=== PATIENT | male | born 1950 | race Caucasian/White ===

== ENCOUNTER 2018-02-12 11:08 | Outpatient (CLI) | payer MEDICARE, OTHER | END 2018-02-12 11:09 | disposition critical access hospital (66) | LOC: EMS 11:08 | PROVIDERS: ATTEND Surgery | DX: S01.81XA Laceration without foreign body of other part of head, initial encounter (principal); W11.XXXA Fall on and from ladder, initial encounter; W22.8XXA Striking against or struck by other objects, initial encounter; Y92.008 Other place in unspecified non-institutional (private) residence as the place of occurrence of the external cause | CPT/HCPCS: A0425; A0429 ==

== ENCOUNTER 2018-02-12 11:28 | Emergency (ER) | payer MEDICARE, OTHER ==
[2018-02-12] MEDS ORDERED: BUPIVACAINE 0.5%-EPI 1:200000 PF 10 ML VIAL SUBQ STA (11:38)
[2018-02-12] MEDS ORDERED: TETANUS/DIPHTHERIA/PERTUSSIS 0.5 ML SYRINGE IM ONE (11:39)
--- NOTE | 2018-02-12 11:42 | ED Physician Documentation ---
History of Present Illness - Stated complaint Stated Complaint: FALL FROM LADDER - Chief complaint Chief Complaint: Trauma Hd/Nk - Additonal information Additional information: hx from pt 67 male on a ladder approx 8 feet up ladder slipper her fell forward striking R supraorbital region on top of ladder then fell large lac a facial bruising no vision loss denies LOC - states he was awake when she got to his side - but he has amnesia to the event so cannot be certain denies GARCIA and neck pain no NV some R lower rib pain no sig abd pain abrasion R galo no other ext injury no blood thinners Review of Systems Constitutional: denies: Fever Ears: denies: Drainage/discharge Nose: denies: Epistaxis Cardiac: reports: Chest pain / pressure (R ribs) Respiratory: denies: Dyspnea GI: denies: Abdominal Pain Skin: reports: Laceration (s) Neurologic: reports: Head injury. denies: Generalized weakness, Focal weakness, Syncope, Seizure, Confused, Altered mental status, Headache Endocrine: denies: Easy bruising / bleeding Immunocompromised: denies: Immunocompromised PD PAST MEDICAL HISTORY - Past Medical History Cardiovascular: High cholesterol Respiratory: Other Endocrine/Autoimmune: None GI: GERD : None HEENT: None Psych: None Musculoskeletal: None - Past Surgical History General: Colonoscopy, EGD - Present Medications Home Medications: Ambulatory Orders Medication Instructions Recorded Confirmed Esomeprazole Magnesium [Nexium] 20 mg PO DAILY 10/16/15 10/16/15 Fexofenadine HCl [Renetta Allergy] 180 mg PO ONCE 10/16/15 10/16/15 Simvastatin [Zocor] 40 mg PO DAILY 10/16/15 10/16/15 - Allergies Allergies/Adverse Reactions: Allergies Allergy/AdvReac Type Severity Reaction Status Date / Time No Known Drug Allergies Allergy Verified 02/12/18 11:39 PD ED PE NORMAL - Vitals Vital signs reviewed: Yes - General General: Alert and oriented X 3 - HEENT HEENT: PERRL, EOMI, Other (no proptosis) - Neck Neck: No bony TTP (but collared and imaged due to mechansim) - Cardiac Cardiac: RRR - Respiratory Respiratory: No respiratory distress, Clear bilaterally, Other (TTP R lower ant/lat ribs with questionable crepitus) - Abdomen Abdomen: Soft, Non tender, Other (no bruising or distension) - Derm Derm: Other (R periorbital ecchymosis, PERRL, no proptosis, very deep approx 8 cm long jagged lacereation just above eyebrow) - Extremities Extremities: No deformity, No tenderness to palpate, Other (abrasion R galo) - Neuro Neuro: Alert and oriented X 3, 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, No motor deficit, No sensory deficit, Normal speech Results - Vitals Vitals: Vital Signs - 24 hr 02/12/18 02/12/18 02/12/18 11:32 12:27 14:00 Temperature 36.7 C Heart Rate 55 L 62 77 Respiratory 18 18 18 Rate Blood Pressure 141/89 H 138/92 H 145/82 H O2 Saturation 97 97 97 02/12/18 15:00 Temperature Heart Rate 84 Respiratory 18 Rate Blood Pressure 147/83 H O2 Saturation 97 Oxygen O2 Source Room air - Labs Labs: Laboratory Tests 02/12/18 02/12/18 13:46 15:29 WBC 16.3 H RBC 4.68 L Hgb 15.8 Hct 45.7 MCV 97.7 H MCH 33.9 H MCHC 34.6 RDW 13.5 Plt Count 264 MPV 9.6 Neut # (Auto) 14.0 H Lymph # (Auto) 1.2 L [place] # (Auto) 1.1 H Eos # (Auto) 0.0 Baso # (Auto) 0.1 Absolute Nucleated RBC 0.01 Nucleated RBC % 0.1 Sodium 139 Potassium 4.4 Chloride 108 Carbon Dioxide 21 Anion Gap 10.0 BUN 23 H Creatinine 1.1 Estimated GFR (MDRD) 67 L Glucose 96 Calcium 8.9 - Rads (name of study) CTH Radiology: See rad report (no acute) CT facial Radiology: See rad report (no facial fx, R periorbital STS, no retro-orbital hematoma) CXR Radiology: See rad report CT CS Radiology: See rad report (possible C2 posterior arch fracture, degen changes) Procedures - Laceration (location) face Length in cm: 8 Wound type: Linear, Irregular. No: Contaminated Neurovascular status: Sensory intact, Motor intact Anesthesia: Marcaine 0.5% with epi (8 cc) Wound Preparation: Irrigated copiously NS (by tech/RN) Deep layer closure: Vicryl (3), size #-0 - enter number (5), # sutures - enter number (3) Skin layer closure: Nylon (12), Interrupted, Size #-0 - enter number (5), Sutures - enter # Other: Patient tolerated well, Dressing applied, Tetanus booster given. No: Neurovascular intact (still blocked) Complexity: Simple PD MEDICAL DECISION MAKING - ED course ED course: upon arrival pt placed in collar given mechanism CT shows a C2 posterior arch fx pt initially neuro intact over course of ED stay developed weakness to R shoulder - diff to ABD or lift arm - bicep tricep biometrics head finger ABD OK thumbs up and wrist ext still intact, sensory intact as well - will [place] [facility] = no tenderness swelling or bruising or any evidence of injury [place] [facility] and bed confirmation at [facility] could not transport so called [facility] for transport pt placed on spine board for transport - in addition to his collar in ambulance pt became anxious claustrophobic and nauseated, pulled off his collar and spider straps, [facility] advised not in their protocol to medicate pt for nausea and anxiety so I went out to the ambulance and assessed the pt - he was very stressed and claustrophobic, felt like he couldn''t breath and was going to vomit while strapped down, states he wanted to get out and walk around and he doesn't care if he is paralyzed forever, given that he has a head injury and has received morphine multiple doses I do not think has capacity to make that decision in the midst of a panic attack, I removed the strap over his neck and he started to calm down a bit, checked blood sugar and it was 105, gave ativan 2 mg IV and zofran, pt calming down and feeling better, I reapplied collar and adjusted it to comfort, he agreed to remain laying flat as long as not strapped, I told EMS I was going back in the ER but would be back to recheck him in a short while, then a few minutes later they drove away with the pt - Sepsis Event Vital Signs: Vital Signs - 24 hr 02/12/18 02/12/18 02/12/18 11:32 12:27 14:00 Temperature 36.7 C Heart Rate 55 L 62 77 Respiratory 18 18 18 Rate Blood Pressure 141/89 H 138/92 H 145/82 H O2 Saturation 97 97 97 02/12/18 15:00 Temperature Heart Rate 84 Respiratory 18 Rate Blood Pressure 147/83 H O2 Saturation 97 Oxygen O2 Source Room air Departure - Departure Disposition: 02 Transfer Acute Care Hosp Clinical Impression: C2 cervical fracture Qualifiers: Encounter type: initial encounter Fracture type: closed Fracture morphology: other fracture Fracture alignment: nondisplaced Qualified Code(s): S12.191A - Other nondisplaced fracture of second cervical vertebra, initial encounter for closed fracture Facial laceration Qualifiers: Encounter type: initial encounter Qualified Code(s): S01.81XA - Laceration without foreign body of other part of head, initial encounter Head injury Qualifiers: Encounter type: initial encounter Qualified Code(s): S09.90XA - Unspecified injury of head, initial encounter Contusion of rib on right side Qualifiers: Encounter type: initial encounter Qualified Code(s): S20.211A - Contusion of right front wall of thorax, initial encounter Fall Qualifiers: Encounter type: initial encounter Qualified Code(s): W19.XXXA - Unspecified fall, initial encounter Condition: Fair Discharge Date/Time: 02/12/18 16:26
--- NOTE | 2018-02-12 12:36 | CT Report ---
Reason: fall off ladder Procedure Date: 02/12/2018 Accession Number: [id number] / [id number] Procedure: CT - Head W/O CPT Code: FULL RESULT: EXAM: CT HEAD EXAM DATE: 02/12/2018 12:00 PM. CLINICAL HISTORY: Fall off ladder. COMPARISON: CERVICAL SPINE W/O 02/12/2018 12:00 AM. TECHNIQUE: Multiaxial CT images were obtained from the foramen magnum to the vertex. Reformats: Coronal. IV contrast: None. In accordance with CT protocol optimization, one or more of the following dose reduction techniques were utilized for this exam: automated exposure control, adjustment of mA and/or KV based on patient size, or use of iterative reconstructive technique. FINDINGS: Parenchyma: No intraparenchymal hemorrhage. No evidence of mass, midline shift, or CT findings of infarction. Snow-white differentiation is distinct. Extraaxial Spaces: Normal for age. No subdural or epidural collections identified. Ventricles: Normal in size and position. Sinuses and Orbits: Imaged paranasal sinuses, orbits, and mastoids show no significant abnormality. Bones: No evidence of fracture or calvarial defect. Other: None. IMPRESSION: Normal head CT. No intracranial hemorrhage or other acute abnormality. [facility]
[2018-02-12] MEDS ORDERED: MORPHINE 2 MG/ML CARPUJECT IVP STA ×2 (12:43→13:57)
[2018-02-12] MEDS ORDERED: ONDANSETRON 4 MG/2 ML VIAL IVP STA (12:43)
[2018-02-12] MEDS ORDERED: SODIUM CHLORIDE 0.9% 1,000 ML IV ONE ×2 (12:43→12:45)
--- NOTE | 2018-02-12 12:43 | CT Report ---
Reason: fall off ladder Procedure Date: 02/12/2018 Accession Number: [id number] / [id number] Procedure: CT - Cervical Spine W/O CPT Code: FULL RESULT: EXAM: CT CERVICAL SPINE WITHOUT CONTRAST DATE: 02/12/2018 12:00 PM. HISTORY: Fall off ladder. COMPARISONS: Noncontrast CT head 02/12/2018. TECHNIQUE: Thin-section axial images were acquired of the cervical spine without contrast. Post-processing: Coronal and sagittal reformats. Other: None. In accordance with CT protocol optimization, one or more of the following dose reduction techniques were utilized for this exam: automated exposure control, adjustment of mA and/or KV based on patient size, or use of iterative reconstructive technique. FINDINGS: Alignment: There is straightening of normal cervical lordosis. There is anterolisthesis of C4 on C5 measuring 2 mm, likely related to degenerative changes. No scoliosis. Bones: No fracture or bone lesion. Interspace Levels/Facets: C1-C2: Mild degenerative change at the atlantodental joint. C2-C3: Mild disk height loss and endplate osteophyte formation. C3-C4: Moderate disk height loss and endplate osteophyte formation. There is moderate to severe bilateral bony neural foraminal narrowing. C4-C5: Mild disk height loss and endplate osteophyte formation. There is mild right neural foraminal narrowing. C5-C6: Moderate to severe disk height loss and endplate osteophyte formation. There is mild central canal narrowing. There is mild bilateral bony neural foraminal narrowing. C6-C7: Moderate disk height loss and endplate osteophyte formation. There is mild right and moderate left neural foraminal narrowing. C7-T1: Mild disk height loss. Musculature: Normal. No fatty atrophy. Other: The paravertebral and prevertebral soft tissues are unremarkable. The lung apices are clear. IMPRESSION: 1. No acute osseous abnormality of the cervical spine. 2. Multilevel degenerative changes of the cervical spine, most advanced at the C5-C6 and C6-C7 levels. 3. There is mild central canal narrowing at the C5-C6 level. There is multilevel bilateral neuroforaminal narrowing as described above. 4. Minimal anterolisthesis of C4 on C5, likely related to degenerative changes. [facility] ADDENDUM: 02/12/18 13:24 Additional FINDINGS: There is a subtle serpiginous linear lucency in the right posterior arch of the C2 vertebra (series 8 images 43-44, series 13 image is 27-31, and series 14 image 47). This could represent a subtle nondisplaced fracture of the right posterior arch of C2. A nutrient foramen could have a similar appearance. These findings were reviewed with Dr. Gomez by Dr. Kam Guerrero at 1:25 PM on 02/12/2018.
--- NOTE | 2018-02-12 12:51 | CT Report ---
Reason: fall off ladder R periorbital injury Procedure Date: 02/12/2018 Accession Number: [id number] / [id number] Procedure: CT - Facial Bones W/O CPT Code: FULL RESULT: EXAM: CT MAXILLOFACIAL WITHOUT CONTRAST EXAM DATE: 02/12/2018 12:00 PM. CLINICAL HISTORY: Fall off ladder. R periorbital injury. COMPARISONS: HEAD W/O 02/12/2018 12:00 AM. TECHNIQUE: Thin-section axial images were acquired of the face without contrast. Post-processing: Coronal and sagittal reformats. Other: None. In accordance with CT protocol optimization, one or more of the following dose reduction techniques were utilized for this exam: automated exposure control, adjustment of mA and/or KV based on patient size, or use of iterative reconstructive technique. FINDINGS: Soft Tissue: There is superficial soft tissue swelling in the right periorbital region. There is a soft tissue laceration superior to the right orbit. There is mild stranding and edema of the right orbital fat. No retro-septal fluid collection identified. The bilateral globes appear symmetric and intact. The infratemporal fossa and parapharyngeal spaces are unremarkable. Orbits: Symmetric and unremarkable. Bones: No fracture or bone lesion. Temporomandibular Joints: The temporomandibular joints are symmetric and normally located. Sinuses: There is mild mucosal thickening of the bilateral ethmoid air cells. Otherwise, the paranasal sinuses are clear. No fluid levels. Other: None. IMPRESSION: 1. No maxillofacial fracture visualized. 2. Right periorbital superficial soft tissue swelling. There is mild edema of right orbital fat. No retroseptal fluid collection identified. [facility]
--- NOTE | 2018-02-12 12:53 | XRAY Report ---
Reason: fall off ladder Procedure Date: 02/12/2018 Accession Number: [id number] / [id number] Procedure: XR - Ribs w/PA Chest RT CPT Code: FULL RESULT: EXAM: RIGHT RIB RADIOGRAPHY EXAM DATE: 02/12/2018 12:10 PM. CLINICAL HISTORY: Fall off ladder. COMPARISON: None. TECHNIQUE: 1 view of the chest and 3 views of the ribs. FINDINGS: Bones: Normal. No fracture or bone lesion. Lungs: Linear basilar opacities likely reflect atelectasis. No other consolidation. No pneumothorax. Mediastinum: Heart and mediastinal contours are unremarkable. Other: None. IMPRESSION: Normal chest and rib radiography. No displaced rib fracture is evident. [facility]
[2018-02-12] MEDS ORDERED: LIDOCAINE PATCH 5% TOP PRN (13:57)
[2018-02-12 13:59] LABS: CALCIUM 8.9 mg/dL (8.5-10.3); CREATININE 1.1 mg/dL (0.6-1.2)
[2018-02-12 15:39] VITALS: BP 147/83
[2018-02-12 15:46] LABS: BASOPHILS # (AUTO) 0.1 10^3/uL (0.0-0.1); BASOPHILS % (AUTO) 0.3 %; EOSINOPHILS % (AUTO) 0.1 %; HGB - HEMOGLOBIN 15.8 g/dL (14.0-18.0); LYMPHOCYTES # (AUTO) 1.2 10^3/uL (1.5-3.5); LYMPHOCYTES % (AUTO) 7.1 %; MEAN CORPUSCULAR HEMOGLOBIN 33.9 pg (27.0-31.0); MEAN CORPUSCULAR HGB CONC 34.6 g/dL (32.0-36.0); MEAN CORPUSCULAR VOLUME 97.7 fL (80.0-94.0); MEAN PLATELET VOLUME 9.6 fL (7.4-11.4); MONOCYTES # (AUTO) 1.1 10^3/uL (0.0-1.0); MONOCYTES % (AUTO) 6.6 %; NEUTROPHILS % (AUTO) 85.9 %; PLT - PLATELET COUNT 264 10^3/uL (130-450); RED BLOOD COUNT 4.68 10^6/uL (4.70-6.10); RED CELL DISTRIBUTION WIDTH 13.5 % (12.0-15.0); WHITE BLOOD COUNT 16.3 x10^3/uL (4.8-10.8)
[2018-02-12] MEDS ORDERED: LORazepam 2 MG/ML VIAL IVP STA ×2 (16:35→16:36)
[2018-02-12] MEDS ORDERED: LORazepam 2 MG/ML VIAL ONE (16:36)
[2018-02-12] MEDS ORDERED: ONDANSETRON 4 MG/2 ML VIAL ONE (16:38)
== END 2018-02-12 16:26 | disposition short-term general hospital (02) ==
LOC: EDUNIT# → ED 11:28
DX: S12.191A Other nondisplaced fracture of second cervical vertebra, initial encounter for closed fracture (principal); S01.81XA Laceration without foreign body of other part of head, initial encounter; S09.90XA Unspecified injury of head, initial encounter; S20.211A Contusion of right front wall of thorax, initial encounter; W11.XXXA Fall on and from ladder, initial encounter; E78.00 Pure hypercholesterolemia, unspecified; Z23 Encounter for immunization
CPT/HCPCS: 12015; 70450; 70486; 71101; 72125; 80048; 85025; 90471; 90715; 96361; 96374; 96376; 99284; A9270; J2060; 86850; 86900; 86901; 99285

== ENCOUNTER 2018-03-15 09:25 | Outpatient (CLI) | payer MEDICARE, OTHER ==
[2018-03-15 14:24] LABS: BASOPHILS # (AUTO) 0.1 10^3/uL (0.0-0.1); BASOPHILS % (AUTO) 1.1 %; EOSINOPHILS # (AUTO) 1.8 10^3/uL (0.0-0.7); EOSINOPHILS % (AUTO) 19.1 %; LYMPHOCYTES # (AUTO) 2.5 10^3/uL (1.5-3.5); LYMPHOCYTES % (AUTO) 26.4 %; MEAN CORPUSCULAR HEMOGLOBIN 34.4 pg (27.0-31.0); MEAN CORPUSCULAR HGB CONC 35.3 g/dL (32.0-36.0); MEAN CORPUSCULAR VOLUME 97.6 fL (80.0-94.0); MEAN PLATELET VOLUME 10.1 fL (7.4-11.4); MONOCYTES % (AUTO) 10.5 %; NEUTROPHILS % (AUTO) 42.9 %; PLT - PLATELET COUNT 220 10^3/uL (130-450); RED BLOOD COUNT 4.66 10^6/uL (4.70-6.10); RED CELL DISTRIBUTION WIDTH 12.9 % (12.0-15.0); WHITE BLOOD COUNT 9.3 x10^3/uL (4.8-10.8)
[2018-03-15 14:31] LABS: ALBUMIN 4.2 g/dL (3.2-5.5); ALBUMIN/GLOBULIN RATIO 1.3 (1.0-2.2); ALKALINE PHOSPHATASE 61 IU/L (42-121); ALT ALANINE AMINOTRANSFERASE 32 IU/L (10-60); AST ASPARTATE AMINOTRANSFERASE 26 IU/L (10-42); BUN - BLOOD UREA NITROGEN 21 mg/dL (6-20); CHOL/HDL RATIO 3.4 (<5.0); CHOLESTEROL 132 mg/dL; CREATININE 1.1 mg/dL (0.6-1.2); GFR - MDRD 67 (>89); HDL CHOLESTEROL 39 mg/dL; LDL CHOLESTEROL,CALCULATED 74 mg/dL; LDL/HDL RATIO 1.9 (<3.6); TOTAL PROTEIN 7.4 g/dL (6.7-8.2); VLDL CHOLESTEROL 19 mg/dL
[2018-03-15 15:00] LABS: CALCIUM 9.1 mg/dL (8.5-10.3); CARBON DIOXIDE - CO2 22 mmol/L (21-32); CHLORIDE 108 mmol/L (101-111); GLUCOSE 92 mg/dL (70-100); SODIUM 136 mmol/L (135-145)
[2018-03-15 15:17] LABS: PLATELET ESTIMATE, MANUAL NORMAL (130-450,000) (NORMAL)
== END 2018-03-15 09:26 | disposition home or self-care (01) ==
LOC: LAB.WCP 09:25
PROVIDERS: ATTEND Physician Assistant Medical
DX: E78.5 Hyperlipidemia, unspecified (principal); Z12.5 Encounter for screening for malignant neoplasm of prostate; R42 Dizziness and giddiness; K21.9 Gastro-esophageal reflux disease without esophagitis
CPT/HCPCS: 36415; 80053; 80061; 84443; 85025; G0103; 83721; 84153

== ENCOUNTER 2018-04-15 07:53 | Outpatient (CLI) | payer MEDICARE, OTHER ==
--- NOTE | 2018-04-16 21:59 | MRI Report ---
Reason: SHOULDER PAIN,RIGHT Procedure Date: 04/15/2018 Accession Number: [id number] / [id number] Procedure: MRI - Shoulder RT W/O CPT Code: FULL RESULT: EXAM: RIGHT SHOULDER MRI WITHOUT CONTRAST. EXAM DATE: 04/15/2018 08:08 AM. CLINICAL HISTORY: Shoulder pain, right. COMPARISON: Shoulder 3 view right 04/11/2018 8:49 AM. TECHNIQUE: Multiplanar, multisequence T1-weighted and fluid-sensitive sequences of the shoulder without contrast. Other: None. FINDINGS: Acromioclavicular Region: The acromion is type II. Mild degenerative joint disease. The coracoacromial and coracoclavicular ligaments are intact. Trace subacromial and subdeltoid bursal fluid. Glenohumeral Region: No subluxation. Small to moderate joint effusion. Moderate cartilage thinning. The glenohumeral ligaments and joint capsule are unremarkable. Bone Marrow: Degenerative subcortical cyst formation lateral humeral head. Labrum: The labrum is unremarkable on this nonarthrographic study. Musculature/Rotator Cuff: 0.7 cm full-thickness tear of the anterior distal supraspinatus attachment with 0.7 cm retraction. No fatty atrophy. Mild tendinosis with mild T2 hyperintensity of the distal infraspinatus. Subscapularis and teres minor appear normal. Biceps Tendon: The long head of the biceps tendon and biceps jamila are intact. Other: The subcutaneous tissues are unremarkable. IMPRESSION: 1. Small full-thickness tear of the anterior distal supraspinatus with minimal retraction but no atrophy. 2. Mild distal infraspinatus tendinosis. [facility] MUSCULOSKELETAL RADIOLOGY SECTION
== END 2018-04-15 07:54 | disposition home or self-care (01) ==
LOC: DI 07:53
PROVIDERS: ATTEND Orthopaedic Surgery Sports Medicine
DX: M75.101 Unspecified rotator cuff tear or rupture of right shoulder, not specified as traumatic (principal); M67.911 Unspecified disorder of synovium and tendon, right shoulder

== ENCOUNTER 2018-05-17 09:05 | Day surgery (SDC) | payer MEDICARE, OTHER ==
[2018-05-17] MEDS ORDERED: LACTATED RINGERS 1,000 ML IV ONE ×2 (09:19→13:30)
[2018-05-17] MEDS ORDERED: ceFAZolin 2 GM/50 ML 2 GM/50 ML BAG IV ONE ×2 (09:22→12:00)
--- NOTE | 2018-05-17 10:01 | ANESTHESIA ---
Pre-Anesthesia VS, & Labs - Diagnosis right shoulder rotator cuff tear - Procedure right arthroscopic rotator cuff repair Vital Signs: Temp Pulse Resp BP Pulse Ox 36.7 C 63 16 123/78 95 05/17/18 09:21 05/17/18 09:21 05/17/18 09:21 05/17/18 09:21 05/17/18 09:21 Height 5 ft 10 in Weight (kg) 114 kg Body Mass Index 34.2 - NPO >8 hours Home Medications and Allergies Home Medications: Ambulatory Orders Aspirin 81 mg PO DAILY 05/16/18 Cetirizine [ZyrTEC] 10 mg PO DAILY 05/17/18 Esomeprazole Magnesium [Nexium] 20 mg PO DAILY 10/16/15 Simvastatin [Zocor] 40 mg PO DAILY 10/16/15 Aspirin 81 mg PO DAILY 05/16/18 Cetirizine [ZyrTEC] 10 mg PO DAILY 05/17/18 Allergies/Adverse Reactions: Allergies Allergy/AdvReac Type Severity Reaction Status Date / Time Penicillins AdvReac Hallucinati Verified 05/17/18 09:32 ons Anes History & Medical History - Anesthetic History Anesthesia Complications: reports: No previous complications Family history of Anesthesia Complications: Denies Family history of Malignant Hyperthermia: Denies - Medical History Cardiovascular: reports: None Pulmonary: reports: None Gastrointestinal: reports: GERD Urinary: reports: None Musculoskeletal: reports: None Endocrine/Autoimmune: reports: None Skin: reports: None Smoking Status: Former smoker - Surgical History General: Colonoscopy Exam General: Alert, Oriented x3, Cooperative, No acute distress Dental: Other (caps) Mouth Openin Fingerbreadth Neck Mobility: Normal Mallampati classification: II Thyromental Distance: 4-6 cm Respiratory: Lungs clear, Normal breath sounds, No respiratory distress, No accessory muscle use Cardiovascular: Regular rate, Normal S1, Normal S2, No murmurs Mental/Cognitive Status: Alert/Oriented X3, Normal for patient Plan Anesthesia Type: General Consent for Procedure(s) Verified and Reviewed: Yes Code Status: Attempt Resuscitation ASA classification: 2-Mild systemic disease Is this case an emergency?: No
[2018-05-17] MEDS ORDERED: BUPIVACAINE 0.25%-EPI 1:200000 PF 30 ML VIAL ONE (10:06)
[2018-05-17] MEDS ORDERED: EPINEPHrine 1 MG/ML AMP ONE (10:06)
[2018-05-17 10:09] LABS: BASOPHILS # (AUTO) 0.1 10^3/uL (0.0-0.1); EOSINOPHILS # (AUTO) 0.2 10^3/uL (0.0-0.7); EOSINOPHILS % (AUTO) 2.9 %; HGB - HEMOGLOBIN 16.4 g/dL (14.0-18.0); LYMPHOCYTES # (AUTO) 2.4 10^3/uL (1.5-3.5); LYMPHOCYTES % (AUTO) 32.2 %; MEAN CORPUSCULAR HEMOGLOBIN 33.6 pg (27.0-31.0); MEAN CORPUSCULAR HGB CONC 34.7 g/dL (32.0-36.0); MEAN CORPUSCULAR VOLUME 97.1 fL (80.0-94.0); MEAN PLATELET VOLUME 8.8 fL (7.4-11.4); MONOCYTES # (AUTO) 0.9 10^3/uL (0.0-1.0); MONOCYTES % (AUTO) 12.3 %; NEUTROPHILS # (AUTO) 3.9 10^3/uL (1.5-6.6); NEUTROPHILS % (AUTO) 51.6 %; PLT - PLATELET COUNT 227 10^3/uL (130-450); RED BLOOD COUNT 4.87 10^6/uL (4.70-6.10); RED CELL DISTRIBUTION WIDTH 12.9 % (12.0-15.0); WHITE BLOOD COUNT 7.5 x10^3/uL (4.8-10.8)
[2018-05-17 10:16] LABS: CALCIUM 9.1 mg/dL (8.5-10.3)
[2018-05-17] MEDS ORDERED: ROPIVACAINE 0.5% PF 20 ML AMPULE ONE (10:29)
[2018-05-17] MEDS ORDERED: BUPIVACAINE 0.5% PF 30 ML VIAL SUBQ ONE (11:42)
[2018-05-17] MEDS ORDERED: BUPIVACAINE 0.25%-EPI 1:200000 PF 30 ML VIAL SUBQ ONE ×2 (11:42)
[2018-05-17] MEDS ORDERED: LIDOCAINE-MPF 2% 5 ML VIAL IM ONE (12:00)
[2018-05-17] MEDS ORDERED: ROCURONIUM 50 MG/5 ML VIAL IVP ONE (12:00)
[2018-05-17] MEDS ORDERED: ePHEDrine 50 MG/ML VIAL IVP ONE (12:00)
[2018-05-17] MEDS ORDERED: fentaNYL 100 MCG/2 ML VIAL IVP ONE (12:00)
[2018-05-17] MEDS ORDERED: DEXAMETHASONE 4 MG/ML VIAL IVP ONE (12:00)
[2018-05-17] MEDS ORDERED: ONDANSETRON 4 MG/2 ML VIAL IVP ONE (12:00)
[2018-05-17] MEDS ORDERED: PROPOFOL 200 MG/20 ML VIAL IVP ONE (12:00)
[2018-05-17] MEDS ORDERED: oxyCODONE 5 MG TABLET PO PRN (13:25)
[2018-05-17] MEDS ORDERED: ONDANSETRON 4 MG/2 ML VIAL IVP PRN (13:25)
--- NOTE | 2018-05-17 13:25 | IMMEDIATE POSTOPERATIVE NOTE ---
Immediate Postoperative Note - Procedure Note Procedure Date: 05/17/18 Pre-Op Diagnosis: RIGHT SHOULDER LILIA/ RCT Procedure: RIGHT SHOULDER SCOPE SAD, RCR Post-Op Diagnosis: SAME Primary Surgeon: VALE Financing Analyst: KAYLA Anesthesia Type: General LMA, Local, Regional block Findings: Anterior supraspinatus tear with downsloping anterior aspect of acromion converted to type I post-decompression. Rotator cuff opposed to its near anatomic footprint with good integrity of the repair. Complications: No complications Estimated Blood Loss (in cc): 50 Plan of Care: Patient tolerated procedure well instrument and sponge counts correct patient transferred to the recovery room in stable condition. Patient will follow standard postoperative right shoulder rotator cuff repair protocol. He will avoid active range of motion shoulder he was seen in the sling with a pillow he would keep the dressings clean dry and intact for 3 days and then change to a waterproof bandage after 3 days and may shower at that point he may not soak the shoulder. He would avoid weightbearing right upper extremity. He will follow-up in 10-14 days or sooner should problems or questions arise. Given perioperative pain medication prescription. Patient's contacted in the waiting room post procedure her questions were answered the above was reviewed. She verbalized agreement satisfaction above plan as the patient had preoperatively.
[2018-05-17 14:17] VITALS: BP 120/68
[2018-05-17] MEDS ORDERED: ONDANSETRON 4 MG/2 ML VIAL ONE (14:22)
--- NOTE | 2018-05-18 02:02 | OPERATIVE REPORT ---
DATE OF SERVICE: 05/17/2018 Physician: Wero Chapin MD PREOPERATIVE DIAGNOSES 1. Right shoulder subacromial impingement. 2. Right shoulder rotator cuff tear. PREOPERATIVE DIAGNOSES 1. Right shoulder subacromial impingement. 2. Right shoulder rotator cuff tear. NAME OF PROCEDURE 1. Right shoulder arthroscopic rotator cuff repair supraspinatus. 2. Right shoulder arthroscopic subacromial decompression conversion to type I acromion. SURGEON: Wero Chapin MD PLANT WRAPPER: None. ANESTHESIOLOGIST: Vance Glynn M.D. ANESTHESIA TYPE: Regional interscalene block under ultrasound guidance, right side, with local anest hesia 10 mL, 0.25% Marcaine with epinephrine, as well as general LMA. ESTIMATED BLOOD LOSS: Less than 50 mL. FLUIDS: 800 mL lactated Ringer's. PREOPERATIVE ANTIBIOTICS: Weight-based IV Ancef. COMPRESSION DEVICE: Bilateral calf SCD boots. ORTHOPEDIC IMPLANTS: Arthrex 5.5 Bio[employer]posite triple-loaded vented anchors INTRAOPERATIVE COMPLICATIONS: None noted. INDICATIONS: The patient is a 68-year-old gentleman with right shoulder pain, failed time and noninv asive treatment, found to have a rotator cuff tear and impingement is indicated for operative treatme nt. Please see previous clinic discussion for further details. These are highlighted with the patie nt and the patient's in the preoperative care unit. The patient asks questions. His questions are answered. He verbalizes understanding of the above and verbalizes his wish to proceed with opera tive treatment. Informed consent is given. DESCRIPTION OF PROCEDURE: On 05/17/2018, patient is identified in the preoperative care unit. He id entifies his right shoulder as the operative site. This is signed by the operating surgeon. The pat ient receives preoperative weight-based IV antibiotics. He is brought to the operating room and plac ed gently on his back after his regional anesthesia is administered in the preoperative area. After general anesthesia, he is placed in the left side down lateral decubitus position with appropriately placed axillary roll to avoid encumbrance of the axilla, as well as a well-padded down leg. The valente ent had a beanbag positioner used. Head, neck and extremities are placed in anatomically comfortable and safe positions to avoid peripheral nerve stretch and compression. At this point, the patient's right upper extremity is draped out and then pre-scrubbed with chlorhexi dine solution, and then prepped and draped in the usual sterile fashion. A surgical pause identifies his right shoulder as the operative site. At this point, local anestheti c is infused anteriorly, posteriorly and laterally. A small incision is made posteriorly. Scope is introduced into the glenohumeral joint. Fluid is infused. Outflow portal is created anteriorly in t he rotator interval with the outside-in technique and at this point after diagnostic arthroscopy whic h shows no significant labral tearing, minimal chondromalacia, no loose bodies, rotator cuff and alexis ps okay aside from the anterior aspect of the supraspinatus, the PDS is placed through the anterior t ear of the supraspinatus to kim and then attention is directed toward the subacromial space. Instruments are redirected in the subacromial space. Lateral incisions are made. An arthroscopic sh aver and arthroscopic heating device with appropriate flow to avoid thermal injury are used to debrid e the adhesions and bursitis under the subacromial region. The coracoacromial ligament is elevated a nd then the anterior aspect of the acromion is burred down to a type 1. At this point, the rotator c uff tear is identified and sharply freshened up at the edge using a meniscal basket. The bur is used to debride the rotator cuff footprint so that it would have freshly bleeding bone, but leave good in tegrity of the bone. Debris is evacuated. At this point, an auxiliary anterolateral incision is mad e such that 2 sequential 5.5 anchors could be placed in the rotator cuff footprint, first anterior, t hen posterior. The anterior ones or sutures are passed using Scorpion device with 3 simple sutures. The posterior 3 have 2 simple sutures and 1 posterior horizontal mattress suture. These are then ti ed in reverse order, thereby re-opposing the rotator cuff to its near anatomic footprint. Care is ta manas to avoid encumbrance of the biceps. After the suture limbs are tied, they are cut. The rotator cuff is noted to be well opposed to its footprint. This is probed and noted to be intact with good i ntegrity. The shoulder is ranged with good integrity of the repair. Subacromial space is copiously irrigated. Instruments are removed. Hemostasis is achieved. Local anesthetic is infused around the incisions and then incisions are closed using 3-0 nylon. Skin is washed and dried. Xeroform dressi ng is applied. Dry sterile dressings applied. Micropore tape is applied over ABD pads. The patient is placed in an abduction pillow sling. The patient tolerated the procedure well. Instrument and sponge counts are correct. The patient is transferred to the recovery room in stable condition. The patient will follow standard postoperative right shoulder rotator cuff repair protocol. He would avoid active shoulder range of motion right-sided, would avoid weightbearing of right upper extremit y. He may do gentle elbow, wrist and hand exercises in general with just loosening of the sling with a pillow, but otherwise the sling pillow should be in place. He would follow up in 10-14 days or so [place] should problems or questions arise. He should be on perioperative antibiotics, perioperative analgesic medications. He denies any contra indication to these medications and will be using them as directed. They will notify us prior to fol lowup visits if problems or questions arise. The patient's is contacted in the waiting room. The case is discussed. Her questions are answe red. She verbalizes agreement and satisfaction to the above plan, as the patient had preoperatively. TD: 05/17/2018 13:56
== END 2018-05-17 09:06 | disposition home or self-care (01) ==
LOC: SDS 09:05
PROVIDERS: ATTEND Orthopaedic Surgery Sports Medicine
PROC: 0RNJ4ZZ Release Right Shoulder Joint, Percutaneous Endoscopic Approach (ICD-10-PCS; 2018-05-17)
PROC: 0LQ14ZZ Repair Right Shoulder Tendon, Percutaneous Endoscopic Approach (ICD-10-PCS; principal; 2018-05-17 10:15)
DX: M75.101 Unspecified rotator cuff tear or rupture of right shoulder, not specified as traumatic (principal); M75.41 Impingement syndrome of right shoulder; K21.9 Gastro-esophageal reflux disease without esophagitis; Z87.891 Personal history of nicotine dependence; Z79.82 Long term (current) use of aspirin; I44.7 Left bundle-branch block, unspecified
CPT/HCPCS: 29826; 29827; 36415; 80048; 85025; 93005; C1713; J0690; J7120

== ENCOUNTER 2018-09-19 13:14 | Outpatient (CLI) | payer MEDICARE, OTHER ==
[2018-09-19 19:43] LABS: ALBUMIN 3.8 g/dL (3.2-5.5); ALBUMIN/GLOBULIN RATIO 1.2 (1.0-2.2); BILIRUBIN,TOTAL 0.8 mg/dL (0.2-1.0); CALCIUM 9.3 mg/dL (8.5-10.3); CREATININE 1.1 mg/dL (0.6-1.2)
[2018-09-19 19:49] LABS: PSA FREE 0.796 ng/mL (0.16-2.81)
[2018-09-19 19:50] LABS: PSA TOTAL 3.206 ng/mL (0.000-2.000)
== END 2018-09-19 13:15 | disposition home or self-care (01) ==
LOC: LAB.WCP 13:14
PROVIDERS: ATTEND Family Medicine
DX: E78.5 Hyperlipidemia, unspecified (principal); R97.20 Elevated prostate specific antigen [PSA]
CPT/HCPCS: 36415; 80053; 84153; 84154

== ENCOUNTER 2019-06-05 10:07 | Outpatient (CLI) | payer MEDICARE, OTHER ==
[2019-06-04 12:24] LABS: PSA FREE 0.93 ng/mL (0.16-2.81)
[2019-06-04 12:25] LABS: PSA TOTAL 3.22 ng/mL (0.000-2.000)
[2019-06-04 12:43] LABS: ALBUMIN 4.2 g/dL (3.2-5.5); ALBUMIN/GLOBULIN RATIO 1.6 (1.0-2.2); ALKALINE PHOSPHATASE 61 IU/L (42-121); ALT ALANINE AMINOTRANSFERASE 33 IU/L (10-60); AST ASPARTATE AMINOTRANSFERASE 25 IU/L (10-42); BILIRUBIN,TOTAL 1.3 mg/dL (0.2-1.0); BUN - BLOOD UREA NITROGEN 20 mg/dL (6-20); CALCIUM 9.4 mg/dL (8.5-10.3); CARBON DIOXIDE - CO2 23 mmol/L (21-32); CHLORIDE 107 mmol/L (101-111); CHOL/HDL RATIO 3.9 (<5.0); CHOLESTEROL 154 mg/dL; CREATININE 1.1 mg/dL (0.6-1.2); GFR - MDRD 66 (>89); GLUCOSE 94 mg/dL (70-100); HDL CHOLESTEROL 40 mg/dL; LDL CHOLESTEROL,CALCULATED 95 mg/dL; LDL/HDL RATIO 2.4 (<3.6); SODIUM 137 mmol/L (135-145); TOTAL PROTEIN 6.9 g/dL (6.7-8.2); VLDL CHOLESTEROL 19 mg/dL
== END 2019-06-05 23:59 | disposition home or self-care (01) ==
LOC: LAB.WCP 10:07
PROVIDERS: ATTEND Family Medicine
DX: E78.5 Hyperlipidemia, unspecified (principal); R09.82 Postnasal drip; R97.20 Elevated prostate specific antigen [PSA]
CPT/HCPCS: 36415; 80053; 80061; 83721; 84153; 84154

== ENCOUNTER 2020-07-03 07:19 | Outpatient (CLI) | payer MEDICARE, OTHER ==
[2020-07-03 13:37] LABS: BASOPHILS # (AUTO) 0.1 10^3/uL (0.0-0.1); BASOPHILS % (AUTO) 0.8 %; EOSINOPHILS # (AUTO) 0.2 10^3/uL (0.0-0.7); EOSINOPHILS % (AUTO) 3.2 %; HGB - HEMOGLOBIN 16.8 g/dL (14.0-18.0); LYMPHOCYTES # (AUTO) 2.5 10^3/uL (1.5-3.5); LYMPHOCYTES % (AUTO) 33.1 %; MEAN CORPUSCULAR HEMOGLOBIN 33.8 pg (27.0-31.0); MEAN CORPUSCULAR VOLUME 99.4 fL (80.0-94.0); MEAN PLATELET VOLUME 11.5 fL (7.4-11.4); NEUTROPHILS # (AUTO) 3.8 10^3/uL (1.5-6.6); NEUTROPHILS % (AUTO) 49.6 %; PLT - PLATELET COUNT 260 10^3/uL (130-450); RED BLOOD COUNT 4.97 10^6/uL (4.70-6.10); RED CELL DISTRIBUTION WIDTH 13.2 % (12.0-15.0); WHITE BLOOD COUNT 7.6 x10^3/uL (4.8-10.8)
[2020-07-03 14:19] LABS: ALBUMIN 4.2 g/dL (3.2-5.5); ALBUMIN/GLOBULIN RATIO 1.4 (1.0-2.2); ALKALINE PHOSPHATASE 62 IU/L (42-121); ALT ALANINE AMINOTRANSFERASE 34 IU/L (10-60); AST ASPARTATE AMINOTRANSFERASE 24 IU/L (10-42); BILIRUBIN,TOTAL 0.7 mg/dL (0.2-1.0); BUN - BLOOD UREA NITROGEN 16 mg/dL (6-20); CALCIUM 9.5 mg/dL (8.5-10.3); CARBON DIOXIDE - CO2 21 mmol/L (21-32); CHLORIDE 105 mmol/L (101-111); CHOL/HDL RATIO 3.4 (<5.0); CHOLESTEROL 144 mg/dL; CREATININE 1.1 mg/dL (0.6-1.2); GLUCOSE 89 mg/dL (70-100); HDL CHOLESTEROL 42 mg/dL; LDL CHOLESTEROL,CALCULATED 88 mg/dL; LDL/HDL RATIO 2.1 (<3.6); TOTAL PROTEIN 7.1 g/dL (6.7-8.2); VLDL CHOLESTEROL 14 mg/dL
== END 2020-07-03 23:59 ==
LOC: LAB.WCP 07:19
PROVIDERS: ATTEND Family Medicine
DX: E78.5 Hyperlipidemia, unspecified (principal); R97.20 Elevated prostate specific antigen [PSA]; K21.9 Gastro-esophageal reflux disease without esophagitis; K58.9 Irritable bowel syndrome, unspecified
CPT/HCPCS: 36415; 80053; 80061; 83721; 84153; 84443; 85025

== ENCOUNTER 2021-05-06 08:34 | Outpatient (CLI) | payer MEDICARE, OTHER ==
[2021-05-06 13:09] LABS: BASOPHILS # (AUTO) 0.1 10^3/uL (0.0-0.1); BASOPHILS % (AUTO) 0.8 %; EOSINOPHILS # (AUTO) 0.2 10^3/uL (0.0-0.7); HCT - HEMATOCRIT 46.9 % (42.0-52.0); HGB - HEMOGLOBIN 16.2 g/dL (14.0-18.0); LYMPHOCYTES # (AUTO) 2.5 10^3/uL (1.5-3.5); LYMPHOCYTES % (AUTO) 33.3 %; MEAN CORPUSCULAR HEMOGLOBIN 33.8 pg (27.0-31.0); MEAN CORPUSCULAR HGB CONC 34.5 g/dL (32.0-36.0); MEAN CORPUSCULAR VOLUME 97.9 fL (80.0-94.0); MEAN PLATELET VOLUME 11.3 fL (7.4-11.4); MONOCYTES % (AUTO) 13.1 %; NEUTROPHILS # (AUTO) 3.7 10^3/uL (1.5-6.6); NEUTROPHILS % (AUTO) 50.5 %; PLT - PLATELET COUNT 237 10^3/uL (130-450); RED BLOOD COUNT 4.79 10^6/uL (4.70-6.10); RED CELL DISTRIBUTION WIDTH 12.6 % (12.0-15.0); WHITE BLOOD COUNT 7.4 x10^3/uL (4.8-10.8)
[2021-05-06 13:55] LABS: ALBUMIN 4.2 g/dL (3.2-5.5); ALBUMIN/GLOBULIN RATIO 1.5 (1.0-2.2); ALKALINE PHOSPHATASE 55 IU/L (42-121); ALT ALANINE AMINOTRANSFERASE 31 IU/L (10-60); AST ASPARTATE AMINOTRANSFERASE 22 IU/L (10-42); BILIRUBIN,TOTAL 0.9 mg/dL (0.2-1.0); BUN - BLOOD UREA NITROGEN 25 mg/dL (6-20); CARBON DIOXIDE - CO2 24 mmol/L (21-32); CHLORIDE 106 mmol/L (101-111); CHOL/HDL RATIO 3.3 (<5.0); CHOLESTEROL 135 mg/dL; GFR - MDRD 73 (>89); GLUCOSE 98 mg/dL (70-100); HDL CHOLESTEROL 41 mg/dL; LDL CHOLESTEROL,CALCULATED 82 mg/dL; POTASSIUM 4.2 mmol/L (3.5-5.0); SODIUM 137 mmol/L (135-145); TRIGLYCERIDES 58 mg/dL; VLDL CHOLESTEROL 12 mg/dL
[2021-05-06 14:35] LABS: THYROID STIMULATING HORMONE 0.84 uIU/mL (0.34-5.60)
== END 2021-05-06 23:59 | disposition home or self-care (01) ==
LOC: LAB.WCP 08:34
PROVIDERS: ATTEND Family Medicine
DX: E78.5 Hyperlipidemia, unspecified (principal); K21.9 Gastro-esophageal reflux disease without esophagitis; K58.9 Irritable bowel syndrome, unspecified
CPT/HCPCS: 36415; 80053; 80061; 83721; 84443; 85025

== ENCOUNTER 2022-07-02 17:34 | Outpatient (CLI) | payer MEDICARE, OTHER ==
--- NOTE | 2022-07-03 03:01 | XRAY Report ---
PROCEDURE: Ribs Bilat w/Chest 4 View INDICATIONS: ANTERIOR CHEST WALL PAIN TECHNIQUE: 3 views of the right ribs were acquired, along with a single view chest. COMPARISON: 02/12/2018 FINDINGS: Surgical changes and devices: None. Bones and chest wall: No displaced rib fracture identified. No suspicious bony lesions. Overlying s oft tissues appear unremarkable. Lungs and pleura: No pleural effusions or pneumothorax. Lungs appear clear. Mediastinum: Mediastinal contours appear normal. Heart size is normal. IMPRESSION: 1. No displaced rib fracture identified. Reviewed by: Carlos Young MD on 07/03/2022 3:00 AM [facility] Approved by: Carlos Young MD on 07/03/2022 3:00 AM [facility] Station ID: [id number]
--- NOTE | 2022-07-03 03:02 | XRAY Report ---
PROCEDURE: ThoracoLumbar 2 View INDICATIONS: BACK PAIN, THORACIC AND LUMBAR REGION TECHNIQUE: 2 views acquired of the thoracolumbar spine. COMPARISON: None. FINDINGS: Bones: No acute fractures or subluxation. There is multilevel mild degenerative disc disease within the lower lumbar spine. Visualized inferior ribs appear intact. No suspicious bony lesions. Soft tissues: No suspicious soft tissue calcifications. IMPRESSION: 1. No fracture or subluxation. 2. Multilevel mild degenerative changes in the spine. Reviewed by: Carlos Ramirez MD on 07/03/2022 3:01 AM PST Approved by: Carlos Ramirez MD on 07/03/2022 3:01 AM PST Station ID: [id number]
--- NOTE | 2022-07-03 03:03 | XRAY Report ---
PROCEDURE: Sacrum/Coccyx INDICATIONS: COCCYGEAL PAIN TECHNIQUE: 3 views of the sacrum and coccyx acquired. COMPARISON: None. FINDINGS: Bones: No fractures or dislocations. There is moderate degenerative disc disease within the lower l umbar spine and mild to moderate facet arthropathy. No suspicious bony lesions. Soft tissues: Visualized bowel gas pattern is normal. No suspicious soft tissue densities. IMPRESSION: 1. No definite fracture identified. Reviewed by: Carlos Ramirez MD on 07/03/2022 3:02 AM PST Approved by: Carlos Ramirez MD on 07/03/2022 3:02 AM PST Station ID: [id number]
== END 2022-07-02 17:35 | disposition home or self-care (01) ==
LOC: DI 17:34
PROVIDERS: ATTEND Family Medicine
DX: R07.89 Other chest pain (principal); M51.36 Other intervertebral disc degeneration, lumbar region; M47.816 Spondylosis without myelopathy or radiculopathy, lumbar region; R97.20 Elevated prostate specific antigen [PSA]
CPT/HCPCS: 36415; 84153

== ENCOUNTER 2022-07-06 09:09 | Outpatient (CLI) | payer MEDICARE, OTHER ==
--- NOTE | 2022-07-06 11:57 | XRAY Report ---
PROCEDURE: Chest 2 View X-Ray INDICATIONS: CHEST WALL PAIN,ACUTE TECHNIQUE: 2 views of the chest were acquired. COMPARISON: Chest and rib radiographs 07/02/2022. FINDINGS: Surgical changes and devices: None. Lungs and pleura: No pleural effusions or pneumothorax. No suspicious focal airspace opacity. Mediastinum: Cardiac silhouette is at the upper limits of normal in size. Mediastinal and hilar cont ours are similar to before. Bones and chest wall: No suspicious bony abnormalities. Soft tissues appear unremarkable. IMPRESSION: No acute cardiopulmonary abnormality. Reviewed by: Rom Coleman MD on 07/06/2022 11:55 AM [facility] Approved by: Rom Coleman MD on 07/06/2022 11:55 AM [facility] Station ID: [id number]
== END 2022-07-06 09:10 | disposition home or self-care (01) ==
LOC: DI 09:09
PROVIDERS: ATTEND Physician Assistant
DX: R07.89 Other chest pain (principal)

== ENCOUNTER 2022-07-15 08:42 | Outpatient (CLI) | payer MEDICARE, OTHER ==
[2022-07-15 12:32] LABS: BASOPHILS # (AUTO) 0.1 10^3/uL (0.0-0.1); BASOPHILS % (AUTO) 0.6 %; EOSINOPHILS # (AUTO) 0.2 10^3/uL (0.0-0.7); EOSINOPHILS % (AUTO) 1.9 %; HCT - HEMATOCRIT 49.1 % (42.0-52.0); HGB - HEMOGLOBIN 16.2 g/dL (14.0-18.0); LYMPHOCYTES # (AUTO) 2.5 10^3/uL (1.5-3.5); LYMPHOCYTES % (AUTO) 27.4 %; MEAN CORPUSCULAR HEMOGLOBIN 33.7 pg (27.0-31.0); MEAN CORPUSCULAR VOLUME 102.1 fL (80.0-94.0); MEAN PLATELET VOLUME 10.7 fL (7.4-11.4); MONOCYTES % (AUTO) 10.8 %; NEUTROPHILS # (AUTO) 5.3 10^3/uL (1.5-6.6); NEUTROPHILS % (AUTO) 59.1 %; PLT - PLATELET COUNT 276 10^3/uL (130-450); RED BLOOD COUNT 4.81 10^6/uL (4.70-6.10); RED CELL DISTRIBUTION WIDTH 12.9 % (12.0-15.0)
[2022-07-15 12:40] LABS: ALBUMIN 3.9 g/dL (3.2-5.5); ALBUMIN/GLOBULIN RATIO 1.2 (1.0-2.2); ALKALINE PHOSPHATASE 88 IU/L (42-121); ALT ALANINE AMINOTRANSFERASE 25 IU/L (10-60); AST ASPARTATE AMINOTRANSFERASE 20 IU/L (10-42); BILIRUBIN,TOTAL 0.7 mg/dL (0.2-1.0); BUN - BLOOD UREA NITROGEN 26 mg/dL (6-20); CALCIUM 9.3 mg/dL (8.5-10.3); CARBON DIOXIDE - CO2 24 mmol/L (21-32); CHLORIDE 108 mmol/L (101-111); CHOL/HDL RATIO 5.2 (<5.0); CHOLESTEROL 188 mg/dL; CREATININE 1.2 mg/dL (0.6-1.2); GFR - MDRD 59 (>89); GLUCOSE 95 mg/dL (70-100); HDL CHOLESTEROL 36 mg/dL; LDL CHOLESTEROL,CALCULATED 118 mg/dL; LDL/HDL RATIO 3.3 (<3.6); POTASSIUM 4.5 mmol/L (3.5-5.0); SODIUM 138 mmol/L (135-145); TOTAL PROTEIN 7.2 g/dL (6.7-8.2); TRIGLYCERIDES 172 mg/dL; VLDL CHOLESTEROL 34 mg/dL
== END 2022-07-15 08:43 | disposition home or self-care (01) ==
LOC: LAB.N 08:42
PROVIDERS: ATTEND Family Medicine
DX: E78.5 Hyperlipidemia, unspecified (principal); R06.09 Other forms of dyspnea; R97.20 Elevated prostate specific antigen [PSA]; K62.5 Hemorrhage of anus and rectum
CPT/HCPCS: 36415; 80053; 80061; 83721; 84153; 85025

== ENCOUNTER 2022-10-27 09:25 | Day surgery (SDC) | payer MEDICARE, OTHER ==
[2022-10-27] MEDS ORDERED: LACTATED RINGERS 1,000 ML IV ONE ×2 (09:30→11:02)
[2022-10-27] MEDS ORDERED: PROPOFOL 500 MG/50 ML 500 MG/50 ML VIAL ONE (10:25)
--- NOTE | 2022-10-27 10:35 | ANESTHESIA ---
Pre-Anesthesia VS, & Labs - Diagnosis screening - Procedure coplonoscopy Vital Signs: Temp Pulse Resp BP Pulse Ox O2 Flow Rate 36.2 C L 57 L 14 109/68 98 10/27/22 09:51 10/27/22 09:51 10/27/22 09:51 10/27/22 09:51 10/27/22 09:51 Height: 5 ft 10 in Weight (kg): 108.5 kg Body Mass Index: 34.3 BMI Classification: Obese - NPO Other (prep as directed) Home Medications and Allergies Home Medications: Ambulatory Orders Acetaminophen [Tylenol] 500 mg PO DAILY PRN 10/26/22 Ibuprofen [Motrin] 600 mg PO Q6H PRN 10/26/22 L. Acidophilus/L. Rhamnosus [Probiotic 15 Billion Cell Cap] 1 each PO DAILY 10/26/22 Pantoprazole Sodium 20 mg PO DAILY 10/26/22 Sildenafil Citrate [Viagra] 25 mg PO DAILY PRN 10/26/22 Simvastatin [Zocor] 20 mg PO DAILY 10/16/15 Acetaminophen [Tylenol] 500 mg PO DAILY PRN 10/26/22 Ibuprofen [Motrin] 600 mg PO Q6H PRN 10/26/22 L. Acidophilus/L. Rhamnosus [Probiotic 15 Billion Cell Cap] 1 each PO DAILY 10/26/22 Pantoprazole Sodium 20 mg PO DAILY 10/26/22 Sildenafil Citrate [Viagra] 25 mg PO DAILY PRN 10/26/22 Allergies/Adverse Reactions: Allergies Allergy/AdvReac Type Severity Reaction Status Date / Time Penicillins AdvReac Hallucinati Verified 10/26/22 12:46 ons Anes History & Medical History - Anesthetic History Anesthesia Complications: reports: No previous complications - Medical History Cardiovascular: reports: High cholesterol Pulmonary: reports: None Gastrointestinal: reports: GERD Urinary: reports: None Musculoskeletal: reports: Chronic back pain Endocrine/Autoimmune: reports: None Skin: reports: None Smoking Status: Former smoker - Surgical History General: reports: Colonoscopy Exam General: Alert, Oriented x3 Dental: WNL Mouth Opening: Greater than 4 Fingerbreadths Neck Mobility: Normal Mallampati classification: II Thyromental Distance: greater than 6 cm Respiratory: Lungs clear Cardiovascular: Regular rate Plan Anesthesia Type: Total IV Consent for Procedure(s) Verified and Reviewed: Yes Code Status: Attempt Resuscitation ASA classification: 2-Mild systemic disease Is this case an emergency?: No
--- NOTE | 2022-10-27 11:10 | ANESTHESIA POST OP EVALUATION ---
Anesthesia Post Eval - Post Anesthesia Eval Vitals: Last Vital Signs Temp 36.1 C L 10/27/22 11:02 Pulse 51 L 10/27/22 11:02 Resp 16 10/27/22 11:02 BP 95/59 L 10/27/22 11:02 Pulse Ox 95 10/27/22 11:02 O2 Flow Rate CV Function Including HR & BP: Stable Pain Control: Satisfactory Nausea & Vomiting: Negative Mental Status: Baseline Respiratory Status: Airway Patent Hydration Status: Satisfactory Anesthesia Complications: None
[2022-10-27 11:24] VITALS: BP 102/74
== END 2022-10-27 09:26 | disposition home or self-care (01) ==
LOC: SDS 09:25
PROVIDERS: ATTEND Surgery
DX: Z12.11 Encounter for screening for malignant neoplasm of colon (principal); K64.1 Second degree hemorrhoids; Z86.010 Personal history of colon polyps; Z87.891 Personal history of nicotine dependence; E66.9 Obesity, unspecified; Z68.34 Body mass index [BMI] 34.0-34.9, adult
CPT/HCPCS: G0105; J7120

== ENCOUNTER 2023-08-19 07:43 | Outpatient (CLI) | payer MEDICARE, OTHER ==
[2023-08-19 12:24] LABS: BASOPHILS # (AUTO) 0.1 10^3/uL (0.0-0.1); BASOPHILS % (AUTO) 0.8 %; EOSINOPHILS # (AUTO) 0.1 10^3/uL (0.0-0.7); EOSINOPHILS % (AUTO) 2.1 %; HGB - HEMOGLOBIN 15.4 g/dL (14.0-18.0); LYMPHOCYTES # (AUTO) 2.2 10^3/uL (1.5-3.5); LYMPHOCYTES % (AUTO) 33.4 %; MEAN CORPUSCULAR HEMOGLOBIN 34.3 pg (27.0-31.0); MEAN PLATELET VOLUME 10.8 fL (7.4-11.4); MONOCYTES # (AUTO) 0.8 10^3/uL (0.0-1.0); MONOCYTES % (AUTO) 12.6 %; NEUTROPHILS # (AUTO) 3.4 10^3/uL (1.5-6.6); NEUTROPHILS % (AUTO) 50.9 %; PLT - PLATELET COUNT 269 10^3/uL (130-450); RED BLOOD COUNT 4.49 10^6/uL (4.70-6.10); RED CELL DISTRIBUTION WIDTH 13.2 % (12.0-15.0); WHITE BLOOD COUNT 6.6 x10^3/uL (4.8-10.8)
[2023-08-19 12:41] LABS: ALBUMIN/GLOBULIN RATIO 1.5 (1.0-2.2); ALKALINE PHOSPHATASE 60 IU/L (42-121); ALT ALANINE AMINOTRANSFERASE 22 IU/L (10-60); AST ASPARTATE AMINOTRANSFERASE 20 IU/L (10-42); BILIRUBIN,TOTAL 1.2 mg/dL (0.2-1.0); BUN - BLOOD UREA NITROGEN 16 mg/dL (6-20); CALCIUM 9.5 mg/dL (8.5-10.3); CARBON DIOXIDE - CO2 23 mmol/L (21-32); CHLORIDE 108 mmol/L (101-111); CHOL/HDL RATIO 3.1 (<5.0); CHOLESTEROL 131 mg/dL; CREATININE 0.9 mg/dL (0.6-1.3); GFR - MDRD 82 (>89); GLUCOSE 99 mg/dL (74-104); HDL CHOLESTEROL 42 mg/dL; LDL CHOLESTEROL,CALCULATED 72 mg/dL; LDL/HDL RATIO 1.7 (<3.6); POTASSIUM 3.9 mmol/L (3.5-4.5); SODIUM 135 mmol/L (135-145); TOTAL PROTEIN 6.7 g/dL (6.4-8.9); TRIGLYCERIDES 86 mg/dL (48-352); VLDL CHOLESTEROL 17 mg/dL
[2023-08-19 12:57] LABS: THYROID STIMULATING HORMONE 0.74 uIU/mL (0.34-5.60)
== END 2023-08-19 07:44 | disposition home or self-care (01) ==
LOC: LAB.N 07:43
PROVIDERS: ATTEND Family Medicine
DX: N52.9 Male erectile dysfunction, unspecified (principal); R97.20 Elevated prostate specific antigen [PSA]; D12.5 Benign neoplasm of sigmoid colon; Z12.5 Encounter for screening for malignant neoplasm of prostate; K21.9 Gastro-esophageal reflux disease without esophagitis; R06.09 Other forms of dyspnea
CPT/HCPCS: 36415; 80053; 80061; 84403; 84443; 85025; G0103; 83721; 84153

== ENCOUNTER 2023-09-29 08:00 | Outpatient (CLI) | payer MEDICARE, OTHER ==
[2023-09-29 16:21] LABS: BILIRUBIN,URINE NEGATIVE (NEGATIVE); GLUCOSE, URINE (UA) NEGATIVE (NEGATIVE); KETONES,URINE (UA) NEGATIVE (NEGATIVE); LEUKOCYTE ESTERASE, URINE NEGATIVE (NEGATIVE); NITRITE,URINE NEGATIVE (NEGATIVE); OCCULT BLOOD,URINE TRACE-INTA (NEGATIVE); PROTEIN,URINE NEGATIVE (NEGATIVE); UROBILINOGEN,URINE 0.2 (NORMAL) E.U./dL (NORMAL)
[2023-09-29 16:33] LABS: BACTERIA,URINE None Seen /HPF (None Seen); CLARITY,URINE CLEAR (CLEAR); RBC,URINE 0-5 /HPF (0-5); SQUAMOUS EPITHELIAL CELL,UR NONE SEEN (<= Few); WBC,URINE 0-3 /HPF (0-3)
== END 2023-09-29 23:59 | disposition home or self-care (01) ==
LOC: LAB 08:00
PROVIDERS: ATTEND Urology
DX: R31.9 Hematuria, unspecified (principal)
CPT/HCPCS: 81001; 87086